=== PATIENT | female | born 2005 | race African-American/Black ===

== ENCOUNTER → 2024-02-02 | Emergency (ER) | payer SELFPAY ==
[~2024-02-02] MED LIST: DIPHENHYDRAMINE 50 MG/ML VIAL ONE; KETOROLAC 30 MG/ML INJ ONE; METOCLOPRAMIDE 10 MG/2mL INJ ONE; NA CHLORIDE 0.9% 1,000 ML ONE; NA CHLORIDE 0.9% 100 ML ONE
[2024-02-02 13:02] LABS: SARS-CoV-2 Antigen CONTROL BLUE LINE VIS/BG OK; SARS-CoV-2 Antigen Rapid Res Negative (Negative)
--- NOTE | 2024-02-02 13:22 | RAD REPORT ---
EXAM DESCRIPTION: [place] Single View02/02/2024 1:01 pm CLINICAL HISTORY: Cough COMPARISON: none FINDINGS: The lungs appear clear of acute infiltrate. The heart is normal size IMPRESSION: No acute abnormalities displayed
--- NOTE | 2024-02-02 13:34 | ER ---
Nurse's Notes [facility] Name: Kalie Yepez Age: 18 yrs Sex: Female : 2005 Arrival Date: 02/02/2024 Time: 11:52 Bed 9 Private MD: Diagnosis: Viral infection, unspecified Presentation: 02/01 12:00 Chief complaint: Patient states: Headache, cough X 2 days. Coronavirus screen: At this ld1 time, the client does not indicate any symptoms associated with coronavirus-19. Ebola Screen: No symptoms or risks identified at this time. Initial Sepsis Screen: Does the patient meet any 2 criteria? No. Patient's initial sepsis screen is negative. Does the patient have a suspected source of infection? No. Patient's initial sepsis screen is negative. Risk Assessment: Do you want to hurt yourself or someone else? Patient reports no desire to harm self or others. Onset of symptoms was February 02, 2024. 12:00 Method Of Arrival: Ambulatory ld1 12:00 Acuity: GUILLERMINA 4 ld1 Triage Assessment: 12:01 General: Appears in no apparent distress. comfortable, Behavior is calm, cooperative, ld1 appropriate for age. Pain: Denies pain. EENT: No signs and/or symptoms were reported regarding the EENT system. Neuro: Level of Consciousness is awake, alert, obeys commands, Oriented to person, place, time, situation. Cardiovascular: Capillary refill < 3 seconds Patient's skin is warm and dry. Respiratory: Airway is patent Respiratory effort is even, unlabored. GI: Abdomen is round non-distended. : No signs and/or symptoms were reported regarding the genitourinary system. 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 - Social history:: Smoking status: Patient denies any tobacco usage or history of. Patient/guardian denies using alcohol. Screenin:52 [facility] ED Fall Risk Assessment (Adult) History of falling in the last 3 months, kd3 including since admission No falls in past 3 months (0 pts) Confusion or Disorientation No (0 pts) Intoxicated or Sedated No (0 pts) Impaired Gait No (0 pts) Mobility Assist Device Used No (0 pt) Altered Elimination No (0 pt) Score/Fall Risk Level 0 - 2 = Low Risk Oriented to surroundings. Abuse screen: Denies threats or abuse. Denies injuries from another. Nutritional screening: No deficits noted. Tuberculosis screening: No symptoms or risk factors identified. Assessment: 12:51 General: Appears in no apparent distress. Behavior is calm, cooperative. Pain: kd3 Complains of pain in headache. Neuro: Level of Consciousness is awake, alert, obeys commands, Oriented to person, place, time, situation. Respiratory: Airway is patent Trachea midline Respiratory effort is even, unlabored, Respiratory pattern is regular, symmetrical. Vital Signs: 12:00 BP 157 / 94; Pulse 96; Resp 18; Temp 98.4(TE); Pulse Ox 100% on R/A; Weight 72.57 kg; ld1 Height 5 ft. 6 in. ; Pain 0/10; 14:02 BP 132 / 79; Pulse 88; Resp 16; Pulse Ox 99% on R/A; kd3 12:00 Body Mass Index 25.82 (72.57 kg, 167.64 cm) - Percentile 82.6 % ld1 12:00 Pain Scale: Adult ld1 ED Course: 11:55 Patient arrived in ED. mg5 11:58 Yousuf Peraza MD is Attending Physician. ec2 12:01 Triage completed. ld1 12:01 Arm band placed on right wrist. ld1 12:31 Inserted saline lock: 22 gauge in right antecubital area, using aseptic technique. kd3 12:43 SARS RAPID Sent. kd3 12:44 Influenza Screen (a \T\ B) Sent. kd3 12:44 Strep Sent. kd3 12:51 Nimco Morrison, ALLIE is Primary Nurse. kd3 12:54 Patient has correct armband on for positive identification. Provided Education on: kd3 medications . 13:03 CXR XRAY In Process Unspecified. EDMS 14:01 No provider procedures requiring assistance completed. IV discontinued, intact, kd3 bleeding controlled, No redness/swelling at site. Pressure dressing applied. Administered Medications: 12:44 Drug: NS 0.9% IV 1000 ml IV at 1 bolus Per protocol; 1000 mL bolus Route: IV; Rate: 1 kd3 bolus; Site: right antecubital; 12:44 Drug: Ketorolac IVP 15 mg IVP once Route: IVP; Site: right antecubital; kd3 12:44 Drug: metoCLOPramide IVP 10 mg IVP once; over 1 to 2 minutes Route: IVP; Site: right kd3 antecubital; 12:44 Drug: diphenhydrAMINE IVP 12.5 mg IVP once Route: IVP; Site: right antecubital; kd3 Medication: 12:54 VIS not applicable for this client. kd3 Outcome: 13:33 Discharge ordered by . ec2 14:01 Discharged to home ambulatory, kd3 14:01 Condition: stable 14:01 Discharge instructions given to patient, Instructed on discharge instructions, follow up and referral plans. medication usage, Demonstrated understanding of instructions, follow-up care, medications, Prescriptions given X 1, 14:02 Patient left the ED. kd3 Signatures: Dispatcher [employer] EDSridevi Wooten RN RN ld1 Nimco Morrison RN RN kd3 Carly Kunz mg5 Yousuf Peraza MD MD ec2
--- NOTE | 2024-02-02 13:34 | EDPHYS ---
Physician Documentation [facility] Name: Kalie Yepez Age: 18 yrs Sex: Female : 2005 Arrival Date: 02/02/2024 Time: 11:52 Bed 9 Private MD: ED Physician Yousuf Peraza HPI: 02/01 13:32 This 18 yrs old Black Female presents to ER via Ambulatory with complaints of Flu ec2 Symptoms. 13:32 Patient arrives today for URI signs and symptoms along with headache. Patient reports ec2 that she has been having worsening symptoms for the past couple days. Patient reports no nausea or vomiting, does report some cough and congestion as well as body aches and headaches. Patient reports otherwise no chronic medical problems . 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 - Social history:: Smoking status: Patient denies any tobacco usage or history of. Patient/guardian denies using alcohol. ROS: 13:32 Constitutional: as per hpi ec2 Exam: 13:32 Constitutional: GEN: NAD Head: atraumatic Eyes: EOMI Ears: External ears are ec2 normal. CV: regular rate LUNGS: no respiratory distress ABD: non-distended SKIN: no evidence of rashes MSK: no evidence of trauma NEURO: moves all extremities equally Vital Signs: 12:00 BP 157 / 94; Pulse 96; Resp 18; Temp 98.4(TE); Pulse Ox 100% on R/A; Weight 72.57 kg; ld1 Height 5 ft. 6 in. ; Pain 0/10; 14:02 BP 132 / 79; Pulse 88; Resp 16; Pulse Ox 99% on R/A; kd3 12:00 Body Mass Index 25.82 (72.57 kg, 167.64 cm) - Percentile 82.6 % ld1 12:00 Pain Scale: Adult ld1 MDM: 12:10 Patient medically screened. ec2 13:32 Data reviewed: vital signs. ED course: Patient arrives today for URI. Ordered lab test ec2 including viral swabs, strep swab, chest x-ray. Imaging and swabs negative for any acute pathology. Will discharge home. Return precautions given. Suspect other viral infection. I considered pneumonia as well as strep pharyngitis.. 02/01 12:16 Order name: Strep; Complete Time: 13:31 ec2 02/01 12:16 Order name: Influenza Screen (a \T\ B); Complete Time: 13:31 ec2 02/01 12:16 Order name: SARS RAPID; Complete Time: 13:31 ec2 02/01 13:01 Order name: Throat Culture EDAZ 02/01 12:16 Order name: CXR XRAY; Complete Time: 13:31 ec2 02/01 12:16 Order name: Misc. Order: no blood work; Complete Time: 12:31 ec2 Administered Medications: 12:44 Drug: NS 0.9% IV 1000 ml IV at 1 bolus Per protocol; 1000 mL bolus Route: IV; Rate: 1 kd3 bolus; Site: right antecubital; 12:44 Drug: Ketorolac IVP 15 mg IVP once Route: IVP; Site: right antecubital; kd3 12:44 Drug: metoCLOPramide IVP 10 mg IVP once; over 1 to 2 minutes Route: IVP; Site: right kd3 antecubital; 12:44 Drug: diphenhydrAMINE IVP 12.5 mg IVP once Route: IVP; Site: right antecubital; kd3 Disposition Summary: 02/02/24 13:33 Discharge Ordered Notes: Location: Home ec2 Condition: Stable ec2 Diagnosis - Viral infection, unspecified ec2 Followup: ec2 - With: Private Physician - When: - Reason: Re-evaluation by your physician Discharge Instructions: - Discharge Summary Sheet ec2 - Viral Illness, Adult ec2 Forms: - Medication Reconciliation Form ec2 - Thank You Letter ec2 - Antibiotic Education ec2 - Prescription Opioid Use ec2 - Patient Portal Instructions ec2 - Leadership Thank You Letter ec2 Prescriptions: - Reglan 10 mg Oral Tablet - take 1 tablet ORAL route every 6 hours take 30 minutes before meals and at ec2 bedtime; 20 tablet; Refills: 0, Product Selection Permitted Signatures: Dispatcher [employer] Sridevi Munguia RN RN ld1 Nimco Morrison RN RN kd3 Peraza, Yousuf, MD MD ec2
[2024-02-02 14:32] VITALS: BP 132/79; TEMP 98.4; O2SAT 99
== END ==
LOC: ER 11:52
DX: B34.9 Viral infection, unspecified (principal); Z11.52 Encounter for screening for COVID-19
CPT/HCPCS: 36415; 71045; 87070; 87081; 87804; 87811; J1200; J2765; J7030